=== PATIENT | male | born 1995 | race Caucasian/White ===

== ENCOUNTER 2024-06-19 14:33 | Emergency (ER) | payer BC ==
[~2024-06-19] VITALS: Ht 177.8 cm; Wt 69.4 kg
[2024-06-19] MEDS ORDERED: TDAP [DIPH/PERTUSSIS/TET] 0.5 ML VIAL IM ONE (16:05)
[2024-06-19] MEDS: TDAP [DIPH/PERTUSSIS/TET] 0.5 ML VIAL IM ONE (16:10)
[2024-06-19 16:49] VITALS: BP 122/80; TEMP 97.7; O2SAT 98
== END 2024-06-19 16:50 | disposition home or self-care (01) ==
LOC: ER 14:36
DX: S01.111A Laceration without foreign body of right eyelid and periocular area, initial encounter (principal); W50.0XXA Accidental hit or strike by another person, initial encounter; Y93.41 Activity, dancing; Y92.252 Music hall as the place of occurrence of the external cause; Y99.8 Other external cause status
CPT/HCPCS: 90715